=== PATIENT | male | born 1990 ===

== ENCOUNTER → 2020-07-11 08:31 | Outpatient (CLI) | payer BC, SELFPAY ==
--- NOTE | ~2020-07-11 | US_ITS ---
EXAMINATION: US scrotum doppler EXAM DATE: 07/11/2020 09:13 INDICATION: Left testicular lump for a month. TECHNIQUE: Multiple grayscale and Doppler images of the testicles and scrotum were obtained bilateral ly. There is no prior study for comparison. FINDINGS: Right testicle measures 3.8 x 3.1 x 3.2 cm and is morphologically normal. Low resistance Doppler brian w confirmed. The epididymis is unremarkable. There is no hydrocele or varicocele. Left testicle measures 3.7 x 2.1 x 3.2 cm and is morphologically normal. Low resistance Doppler flow confirmed. There is an epididymal head cyst measuring 1.1 cm, and an adjacent one measuring 0.9 cm. These may correspond to the palpable abnormalities. Small varicocele. IMPRESSION: 1. Two left epididymal head cysts likely corresponding to palpable abnormality. 2. Small left varicocele. 3. Sonographically normal testicles. Reviewed, dictated and finalized at location A. IMPRESSION: 1. Two left epididymal head cysts likely corresponding to palpable abnormality . 2. Small left varicocele. 3. Sonographically normal testicles.
== END ==
DX: N50.89 Other specified disorders of the male genital organs (principal); N50.3 Cyst of epididymis; I86.1 Scrotal varices
CPT/HCPCS: 76870; 93976